=== PATIENT | male | born 1970 | race Two or more races ===

== ENCOUNTER 2025-03-04 08:29 | Inpatient (IN) | payer BC ==
[~2025-03-04] VITALS: Ht 177.8 cm; Wt 82.5 kg
[2025-03-04 08:35] VITALS: PULSE 83; RESP 12; O2SAT 95
--- NOTE | 2025-03-04 08:35 | ECG ---
[facility] Test Date: 2025-03-04 Test Time: 08:26:21 Pat Name: KARINE FOX Department: Room: [address] [place] [address] Gender: M Care Tech: GP : 1970 Requested By: DONOVAN BRO Order Number: [id number] Reading MD: Baldemar Rojo Measurements Intervals [place] Rate: 72 P: 29 VA: 173 QRS: -79 QRSD: 99 T: -7 QT: 396 QTc: 434 Interpretive Statements Sinus rhythm RSR' in V1 or V2, right VCD or RVH Probable left ventricular hypertrophy Probable inferior infarct, age indeterminate Lateral leads are also involved Electronically Signed On 03-04-2025 15:19:15 PDT by Baldemar Rojo Please click the below link to view image of tracing.
--- NOTE | 2025-03-04 08:56 | ED.PDOC ---
HPI (NEURO) HPI Comments 54 year old male presents to the ED with a chief complaint of slurred speech onset today (03/04/25) around 06:00. Patient states he woke up around 06:00, noticed slurred speech, Lt arm numbness. Patient states is currently experiencing dizziness as well. Upon ED arrival BG was 81, BP was 198/111 repeat BP was 203/219. Denies chest pain, shortness of breath, fever, chills, headache, blurred vision, fall, head injury, nausea, vomiting, diarrhea. No other symptoms or modifying factors present at this time. Chief Complaint: Stroke Time Seen by MD: 08:31 Reviewed Notes: Medications, Allergies Information Source: Patient Mode of Arrival: Ambulatory Severity: Moderate Timing: Hours Duration: Since onset Prehospital treatment: None Numbness Location: (L) Arm Onset: At rest Circumstances: Spontaneous Symptoms: Numbness History of: None Modifying factors: Nothing Associated Signs and Symptoms: Numbness Past Medical History PAST MEDICAL HISTORY: Denies Surgical History: Denies all surgeries Family History Family History: Reviewed,noncontributory to illness, No family hx of Cancer, No family hx of DM, No family hx of Heart nereida, No family hx of HTN, No family hx ofKidney nereida, No family hx of Liver nereida, No family hx of Lung nereida, No family hx of Stroke Social History Smoker: Non-Smoker Alcohol: Denies ETOH Use Drugs: Denies Drug Use Lives In: Home Constitutional: denies: chills, diaphoresis, fatigue, fever, malaise, sweats, weakness, others EENTM: denies: blurred vision, double vision, ear bleeding, ear discharge, ear drainage, ear pain, ear ringing, eye pain, eye redness, hearing loss, mouth pain, mouth swelling, nasal discharge, nose bleeding, nose congestion, nose pain, photophobia, tearing, throat pain, throat swelling, voice changes, others Respiratory: denies: cough, hemoptysis, orthopnea, SOB at rest, shortness of breath, SOB with excertion, stridor, wheezing, others Cardiovascular: denies: chest pain, dizzy spells, diaphoresis, Dyspnea on exertion, edema, irregular heart beat, left arm pain, lightheadedness, palpitations, PND, syncope, others Genitourinary: denies: burning, dysuria, flank pain, frequency, hematuria, incontinence, penile discharge, penile sore, pain, testicle pain, testicle swelling, urgency, others Neurological: reports: dizziness, numbness (Lt arm), others (slurred speech); denies: fainting, headache, left sided numbness, left sided weakness, paresthesia, pre-existing deficit, right sided numbness, right sided weakness, seizure, speech problems, tingling, tremors, weakness Musculoskeletal: denies: back pain, gout, joint pain, joint swelling, muscle pain, muscle stiffness, neck pain, others Integumetry: denies: bruises, change in color, change in hair/nails, dryness, laceration, lesions, lumps, rash, wounds, others Allergic/Immunocompromised: denies: Difficulty Healing, Frequent Infections, Hives, Itching, others Hematologic/Lymphatic: denies: anemia, blood clots, easy bleeding, easy bruising, swollen glands, others Endocrine: denies: excessive hunger, excessive sweating, excessive thirst, excessive urination, flushing, intolerance to cold, intolerance to heat, unexplained weight gain, unexplained weight loss, others Psychiatric: denies: anxiety, bipolar disorder, depression, hopeless, panic disorder, schizophrenia, sleepless, suicidal, others All Other Systems: Reviewed and Negative Physical Exam General Appearance: Moderate Distress HEENT: Normal ENT Inspection, Pharynx Normal, TMs Normal Neck: Full Range of Motion, Non-Tender, Normal, Normal Inspection Respiratory: Chest Non-Tender, Lungs Clear, No Accessory Muscle Use, No Respiratory Distress, Normal Breath Sounds Cardiovascular: No Edema, No JVD, No Murmur, No Gallop, Normal Peripheral Pulses, Regular Rate/Rhythm Breast Exam: Deferred Gastrointestinal: No Organomegaly, Non Tender, No Pulsatile Mass, Normal Bowel Sounds, Soft Genitalia: Deferred Pelvic: Deferred Rectal: Deferred Extremities: No calf tenderness, Normal capillary refill, Normal inspection, Normal range of motion, Non-tender, No pedal edema Musculoskeletal : Apperance: Normal Neurologic: Alert, chairman & chief executive officer II-XII nml as Tested, No Motor Deficits, Normal Affect, Normal Mood, No Sensory Deficits Cerebellar Function: Normal Reflexes: Normal Skin: Dry, Normal Color, Warm Peripheral Pulses: 3+ Radial (R), 3+ Radial (L) Lymphatic: No Adenopathy EKG EKG : Pulse Rate (adult): 72 Cardiac Rhythm: NSR Was a procedure done? Was a procedure done?: No Differential Diagnosis (SZ) Seizure: Psychogenic Seizure, Closed Head Injury, CVA/TIA X-Ray, Labs, Meds, VS Vital Signs Date Time Temp Pulse Resp B/P (MAP) Pulse Ox O2 Delivery O2 Flow Rate FiO2 03/04/25 09:02 68 171/119 03/04/25 08:56 72 03/04/25 08:53 70 03/04/25 08:35 83 12 95 Room Air* 0 21 03/04/25 08:35 98.3 83 12 232/128 (162) 95 98.3 03/04/25 08:33 72 03/04/25 08:23 99.5 64 18 198/111 97 99.5 203/129 Lab Test 03/04/25 09:30 03/04/25 08:45 03/04/25 08:35 Range/Units Troponin I High Sensitivity Pending 10 </=54 ng/L Urine Color Colorless Yellow Urine Clarity Clear Clear Urine pH 5.5 5.0-9.0 Urine Specific [place] 1.004 1.001-1.035 Urine Protein Negative Negative Urine Ketones Negative Negative Urine Blood Negative Negative /uL Urine Nitrite Negative Negative Urine Bilirubin Negative Negative Urine Urobilinogen Normal Negative mg/dL Urine Leukocyte Esterase Negative Negative /uL Urine RBC None seen 0 - 3 /hpf Urine Microscopic WBC < 1 0-3 /HPF Urine Squamous Epithelial Cells Few <5 /hpf Urine Bacteria None seen None Seen /hpf Urine Glucose Normal Normal mg/dL White Blood Count 10.5 4.4-10.8 10^3/uL Red Blood Count 5.45 4.5-5.90 10^6/uL Hemoglobin 16.3 13.5-17.5 g/dL Hematocrit 48.7 41.0-53.0 % Mean Corpuscular Volume 89.3 80.0-100.0 fL Mean Corpuscular Hemoglobin 30.0 28.0-32.0 pg Mean Corpuscular Hemoglobin Concent 33.6 32.0-36.0 g/dL Red Cell Distribution Width 14.6 H 11.8-14.3 % Platelet Count 231 140-450 10^3/uL Mean Platelet Volume 9.2 6.9-10.8 fL Neutrophils (%) (Auto) 64.9 37.0-80.0 % Lymphocytes (%) (Auto) 25.5 10.0-50.0 % Monocytes (%) (Auto) 7.5 0.0-12.0 % Eosinophils (%) (Auto) 1.7 0.0-7.0 % Basophils (%) (Auto) 0.4 0.0-2.0 % Neutrophils # (Auto) 6.8 1.6-8.6 10 ^3/uL Lymphocytes # (Auto) 2.7 0.4-5.4 10 ^3/uL Monocytes # (Auto) 0.8 0-1.3 10 ^3/uL Eosinophils # (Auto) 0.2 0-0.8 10 ^3/uL Basophils # (Auto) 0 0-0.2 10 ^3/uL Nucleated Red Blood Cells 0.0 % Sodium Level 143 136-145 mmol/L Potassium Level 4.8 3.5-5.1 mmol/L Chloride Level 110 H 98-107 mmol/L Carbon Dioxide Level 26 20-31 mmol/L Anion Gap 7 5-15 Blood Urea Nitrogen 12 9-23 mg/dL Creatinine 1.14 0.700-1.30 mg/dL Glomerular Filtration Rate Calc 76 >90 mL/min BUN/Creatinine Ratio 10.5 10.0-20.0 Serum Glucose 95 74-106 mg/dL Calcium Level 9.2 8.7-10.4 mg/dL Current Medications Medications (Trade) Dose Ordered Sig/Klaus Route Start Time Stop Time Status Last Admin Labetalol HCl (Labetalol HCl) 10 mg ONCE ONCE IV 03/04/25 09:00 03/04/25 09:01 DC 03/04/25 09:02 Patient alert. Blood pressure elevated. Ambulating. Answering questions. Was given labetalol. Has good muscle strength. Complaining of speech difficulty. Possible TIA. Possible lacunar infarct. WBC within normal limits. Hemoglobin within normal limits. EKG reviewed does not show any acute changes. Explained to the patient. Continue monitoring. [address] [address] Ph: [phone] DIAGNOSTIC IMAGING Diagnostic Imaging Report : [id number] Signed PATIENT: KARINE FOX ACCT: [id number] UNIT: [id number] : 1970 LOC: ER ROOM / BED: / AGE / SEX: 54 / M ADM STATUS: REG ER SERVICE 9 ORDERING PHYSICIAN: DONOVAN BRO MD PROCEDURE(s): CTH - STROKE CTH REASON: cva ORDER NUMBER(s): [id number], ACCESSION NUMBER(s): [id number] EXAM: CT STROKE CTH INDICATION: cva TECHNIQUE: CT of the head without intravenous contrast. Radiation Dose : 1. Head: CT Dose: CTDI volume is 58.84 mGy. Dose-length product is 1159.45 mGy*cm The dose indicators for CT are the volume Computed Tomography (CT) Dose Index (CTDIvol) and the Dose Length Product (DLP), and are measured in units of mGy and mGy-cm, respectively. These indicators are not patient dose, but values generated from the CT scanner acquisition factors. The report includes radiation exposure data for exposures received during this examination. COMPARISON: None FINDINGS: There is no evidence of acute intracranial hemorrhage, extra-axial collection, mass effect, midline shift, herniation or hydrocephalus. The ventricles, sulci and cisterns are age appropriate. The adam-white differentiation is intact. The visualized paranasal sinuses and mastoid air cells are clear. The surrounding soft tissues and osseous structures are unremarkable. IMPRESSION: No acute intracranial abnormality. Radiation optimization: All CT scans at this facility use at least one of these dose optimization techniques: automated exposure control mA and/or kV adjustment per patient size (includes targeted exams where dose is matched to clinical indication) or iterative reconstruction. ATED BY: CALVIN JOHNSON MD DICTATED DATE/TIME: 03/04/25919 SIGNED BY: CALVIN JOHNSON MD SIGNED DATE/TIME: 03/04/25919 CC: [place] [id number] Ph: [phone] DIAGNOSTIC IMAGING Diagnostic Imaging Report : [id number] Signed PATIENT: KARINE FOX ACCT: [id number] UNIT: [id number] : 1970 LOC: ER ROOM / BED: / AGE / SEX: 54 / M ADM STATUS: REG ER SERVICE ORDERING PHYSICIAN: DONOVAN BRO MD PROCEDURE(s): CXRP - CHEST PORTABLE REASON: sob ORDER NUMBER(s): [id number], ACCESSION NUMBER(s): [id number] CHEST RADIOGRAPH Indication: sob Technique: Single frontal view of the chest was obtained COMPARISON: None FINDINGS: Lines and Tubes: None Lungs: Clear Pleura: No effusion. No pneumothorax. Cardiomediastinal contours: Unremarkable Bones: Unremarkable IMPRESSION: No acute disease. ATED BY: CALVIN JOHNSON MD DICTATED DATE/TIME: 03/04/25916 SIGNED BY: CALVIN JOHNSON MD SIGNED DATE/TIME: 03/04/25916 CC: Time of 1ST Reevaluation: 09:01 Reevaluation 1ST: Unchanged Patient Education/Counseling: Diagnosis, Treatment, Prognosis Family Education/Counseling: No Family Present Departure 1 Departure Time of Disposition: 09:45 Impression: Primary Impression: Hypertensive emergency Additional Impression: TIA (transient ischemic attack) Disposition: ADMITTED INPATIENT Admit to: Med Surg Condition: Guarded Critical Care Note Critical Care Time?: Yes (90 min-critical care time only) Stability Stability form required: No Heart Score Heart Score: Heart Score Response (Comments) Value History Slightly Suspicious 0 EKG Normal 0 Age 45-64 1 Risk Factors >3 or Hx ASHD 2 Troponin Normal limit 0 Total 3 I personally scribed for DONOVAN BRO MD ([email or web address]) on 03/04/25 at 08:56. Electronically submitted by Roshni Wise ([email or web address]). I personally scribed for DONOVAN BRO MD ([email or web address]) on 03/04/25 at 09:49. Electronically submitted by Roshni Wise ([email or web address]). DONOVAN BRO MD Mar 04, 2025 08:56
[2025-03-04] MEDS: LABETALOL HCL 20 MG/4 ML VL IV ONE (09:02)
[2025-03-04 09:07] LABS: Hematocrit 48.7 % (41.0-53.0); Hemoglobin 16.3 g/dL (13.5-17.5); Mean Corpuscular Hemoglobin 30.0 pg (28.0-32.0); Mean Corpuscular Volume 89.3 fL (80.0-100.0); Nucleated Red Blood Cells % 0.0 %
[2025-03-04 09:19] LABS: Urine Protein, UAD Negative (Negative)
--- NOTE | 2025-03-04 09:19 | DVH ---
CHEST RADIOGRAPH Indication: sob Technique: Single frontal view of the chest was obtained COMPARISON: None FINDINGS: Lines and Tubes: None Lungs: Clear Pleura: No effusion. No pneumothorax. Cardiomediastinal contours: Unremarkable Bones: Unremarkable IMPRESSION: No acute disease.
--- NOTE | 2025-03-04 09:22 | DVH ---
EXAM: CT STROKE CTH INDICATION: cva TECHNIQUE: CT of the head without intravenous contrast. Radiation Dose : 1. Head: CT Dose: CTDI volume is 58.84 mGy. Dose-length product is 1159.45 mGy*cm The dose indicators for CT are the volume Computed Tomography (CT) Dose Index (CTDIvol) and the Dose Length Product (DLP), and are measured in units of mGy and mGy-cm, respectively. These indicators are not patient dose, but values generated from the CT scanner acquisition factors. The report includes radiation exposure data for exposures received during this examination. COMPARISON: None FINDINGS: There is no evidence of acute intracranial hemorrhage, extra-axial collection, mass effect, midline s hift, herniation or hydrocephalus. The ventricles, sulci and cisterns are age appropriate. The adam-white differentiation is intact. The visualized paranasal sinuses and mastoid air cells are clear. The surrounding soft tissues and osseous structures are unremarkable. IMPRESSION: No acute intracranial abnormality. Radiation optimization: All CT scans at this facility use at least one of these dose optimization alex hniques: automated exposure control mA and/or kV adjustment per patient size (includes targeted exam s where dose is matched to clinical indication) or iterative reconstruction.
[2025-03-04 09:37] LABS: Potassium 4.8 mmol/L (3.5-5.1); Sodium 143 mmol/L (136-145)
[2025-03-04 09:38] LABS: Anion Gap 7 (5-15); Carbon Dioxide 26 mmol/L (20-31)
[2025-03-04 09:39] LABS: Calcium 9.2 mg/dL (8.7-10.4)
[2025-03-04 09:41] LABS: Chloride 110 mmol/L (98-107)
[2025-03-04 09:44] LABS: BUN/Creatinine Ratio 10.5 (10.0-20.0); Blood Urea Nitrogen 12 mg/dL (9-23); Glucose 95 mg/dL (74-106)
[2025-03-04] MEDS ORDERED: HYDROcodone-ACET 5/325MG TAB PO PRN (14:00)
[2025-03-04] MEDS ORDERED: NITROGLYCERIN 0.4 MG SL TAB SL PRN (14:00)
[2025-03-04] MEDS ORDERED: MORPHINE SULFATE INJ 2 MG/ml SYRG IV PRN (14:00)
[2025-03-04] MEDS ORDERED: ONDANSETRON HCL 4 MG/2 ML VIAL IV PRN (14:00)
[2025-03-04] MEDS ORDERED: DOCUSATE SOD 100 MG CAP PO PRN (14:00)
[2025-03-04] MEDS ORDERED: ACETAMINOPHEN 325 MG TAB PO PRN (14:00)
[2025-03-04] MEDS ORDERED: AMLO1TAB23 PO (14:02)
[2025-03-04] MEDS ORDERED: ENOXAPARIN SOD 80 MG/0.8ML SYRINGE SC ONE (14:30)
--- NOTE | 2025-03-04 14:32 | DVHHP2 ---
History of Present Illness Reason for Visit: Left sided weakness History of Present Illness Oren Chavez is a 54-year-old male with past medical history of hypertension, who has not been taking any medications for a few months, who came to the hospital due to left sided weakness. Patient states he woke up at 0600 this morning with left arm weakness, left facial droop, and slurred speech. His symptoms starting improving while he was at home so he started to get ready for work. He then started to become dizzy and his was able to convince him to come to the hospital. Cardiovascular: HTN Smoke: No ALCOHOL: heavy (2 beers/day) Drugs: None Lives: with Family Domestic Violence: Neg Review of Systems Constitutional: No: Fever, Chills, Sweats, Weakness, Malaise, Other Eyes: No: Pain, Vision change, Conjunctivae inflammation, Eyelid inflammation, Other, Redness ENT: No: Ear pain, Ear discharge, Nose pain, Nose discharge, Nose congestion, Mouth pain, Mouth swelling, Throat pain, Throat swelling, Other Respiratory: No: Cough, Dry, Shortness of breath, SOB with excertion, Wheezing, Hemoptysis, Pleuritic Pain, Sputum, Wheezing, Other Cardiovascular: No: Chest Pain, Palpitations, Orthopnea, Paroxysmal Noc. Dyspne a, Edema, Lt Headedness, Other Gastrointestinal: No: Nausea, Vomiting, Abdominal Pain, Diarrhea, Constipation, Melena, Hematochezia, Other Genitourinary: No Dysuria, No Frequency, No Incontinence, No Hematuria, No Retention, No Other Musculoskeletal: No: other, neck pain, shoulder pain, arm pain, back pain, hand pain, leg pain, foot pain Skin: No: Rash, Lesions, Jaundice, Bruising, Other Neurological: Weakness (left arm ), Numbness (left arm, left face), Other (Dizzy, left facial droop, drooling); No: Incoordination, Change in speech, Confusion, Seizures Allergies: Coded Allergies: NO KNOWN ALLERGIES (Unverified , 03/04/25) Medications Current Medications Medications Dose Ordered Sig/Klaus Route Start Time Stop Time Status Last Admin Dose Admin Acetaminophen/ Hydrocodone Bitart 1 tab Q4HP PRN PO 03/04/25 14:00 UNV Ondansetron HCl 4 mg Q4HP PRN IV 03/04/25 14:00 UNV Docusate Sodium 100 mg BIDPRN PRN PO 03/04/25 14:00 UNV Acetaminophen 650 mg Q6HP PRN PO 03/04/25 14:00 UNV Nitroglycerin 0.4 mg Q5MINP PRN SL 03/04/25 14:00 UNV Morphine Sulfate 2 mg Q30M PRN IV 03/04/25 14:00 UNV Patient Own Medication 2 tab DAILY PO 03/05/25 10:00 UNV Hydralazine HCl 10 mg Q6HP PRN IV 03/04/25 14:15 UNV Clonidine HCl 0.2 mg Q6HP PRN PO 03/04/25 14:15 UNV Exam Vital Signs Vital Signs Date Time Temp Pulse Resp B/P (MAP) Pulse Ox O2 Delivery O2 Flow Rate FiO2 03/04/25 12:30 65 18 138/85 (102) 94 03/04/25 08:35 Room Air* 0 21 03/04/25 08:35 98.3 98.3 General Appearance: Alert, Oriented X3, Cooperative, mild distress HEENT: Atraumatic, PERRLA, Mucous membr. moist/pink Respiratory: Clear to auscultation, Normal air movement Cardiovascular: Regular rate, Normal S1, Normal S2, No murmurs Abdominal: Normal bowel sounds, Soft, No tenderness, No hepatospenomegaly Extremities: No clubbing, No cyanosis, No edema, Normal pulses, No tenderness/swelling Skin: No rashes, No breakdown, No significant lesion Neuro: Normal gait, Normal speech, Strength at 5/5 X4 ext, Normal tone, Other (states all symptoms have resolved) Psych/Mental Status: Mental status NL, Mood NL Labs/Xrays Labs Test 03/04/25 11:43 03/04/25 08:45 03/04/25 08:35 Range/Units Troponin I High Sensitivity 9 </=54 ng/L Urine Color Colorless Yellow Urine Clarity Clear Clear Urine pH 5.5 5.0-9.0 Urine Specific [place] 1.004 1.001-1.035 Urine Protein Negative Negative Urine Ketones Negative Negative Urine Blood Negative Negative /uL Urine Nitrite Negative Negative Urine Bilirubin Negative Negative Urine Urobilinogen Normal Negative mg/dL Urine Leukocyte Esterase Negative Negative /uL Urine RBC None seen 0 - 3 /hpf Urine Microscopic WBC < 1 0-3 /HPF Urine Squamous Epithelial Cells Few <5 /hpf Urine Bacteria None seen None Seen /hpf Urine Glucose Normal Normal mg/dL White Blood Count 10.5 4.4-10.8 10^3/uL Red Blood Count 5.45 4.5-5.90 10^6/uL Hemoglobin 16.3 13.5-17.5 g/dL Hematocrit 48.7 41.0-53.0 % Mean Corpuscular Volume 89.3 80.0-100.0 fL Mean Corpuscular Hemoglobin 30.0 28.0-32.0 pg Mean Corpuscular Hemoglobin Concent 33.6 32.0-36.0 g/dL Red Cell Distribution Width 14.6 H 11.8-14.3 % Platelet Count 231 140-450 10^3/uL Mean Platelet Volume 9.2 6.9-10.8 fL Neutrophils (%) (Auto) 64.9 37.0-80.0 % Lymphocytes (%) (Auto) 25.5 10.0-50.0 % Monocytes (%) (Auto) 7.5 0.0-12.0 % Eosinophils (%) (Auto) 1.7 0.0-7.0 % Basophils (%) (Auto) 0.4 0.0-2.0 % Neutrophils # (Auto) 6.8 1.6-8.6 10 ^3/uL Lymphocytes # (Auto) 2.7 0.4-5.4 10 ^3/uL Monocytes # (Auto) 0.8 0-1.3 10 ^3/uL Eosinophils # (Auto) 0.2 0-0.8 10 ^3/uL Basophils # (Auto) 0 0-0.2 10 ^3/uL Nucleated Red Blood Cells 0.0 % Sodium Level 143 136-145 mmol/L Potassium Level 4.8 3.5-5.1 mmol/L Chloride Level 110 H 98-107 mmol/L Carbon Dioxide Level 26 20-31 mmol/L Anion Gap 7 5-15 Blood Urea Nitrogen 12 9-23 mg/dL Creatinine 1.14 0.700-1.30 mg/dL Glomerular Filtration Rate Calc 76 >90 mL/min BUN/Creatinine Ratio 10.5 10.0-20.0 Serum Glucose 95 74-106 mg/dL Calcium Level 9.2 8.7-10.4 mg/dL CHEST RADIOGRAPH FINDINGS: Lines and Tubes: None Lungs: Clear Pleura: No effusion. No pneumothorax. Cardiomediastinal contours: Unremarkable Bones: Unremarkable IMPRESSION: No acute disease. EXAM: CT STROKE CTH FINDINGS: There is no evidence of acute intracranial hemorrhage, extra-axial collection, mass effect, midline shift, herniation or hydrocephalus. The ventricles, sulci and cisterns are age appropriate. The adam-white differentiation is intact. The visualized paranasal sinuses and mastoid air cells are clear. The surrounding soft tissues and osseous structures are unremarkable. IMPRESSION: No acute intracranial abnormality. SEPSIS Sepsis Screen Date sepsis recognized/suspect: Mar 04, 2025 Time Sepsis recognized/suspect: 834 Recent Procedure: No On Antibiotic Therapy: No Respiratory Rate >20: No Heart Rate >90: No Temp<36 C (96.8 F) or >38.3 C: No SBP <90 or MAP <65 mmHG: No New Acute Mental Status Change: No Is the patient on CPAP, BIPAP,: No Physician Orders Ct Head Cva (03/04/25 08:50) Chest Portable (03/04/25 08:50) Admit (03/04/25 13:52) Code Status (03/04/25 13:52) 2 Gm Sodium Diet (03/04/25 Dinner) Hydrocodone-Acet 5/325mg Tab (Prim 5/32 (03/04/25 14:00) Ondansetron Hcl (Zofran) (03/04/25 14:00) Docusate Sodium Capsule (Colace Capsule) (03/04/25 14:00) Complete Blood Count (03/05/25 04:00) Comprehensive Metabolic Panel (03/05/25 04:00) Echo 2d Mode Cardiac Dop (03/04/25 13:52) Condition: Serious (03/04/25 13:52) Acetaminophen Tablet (Tylenol Tablet) (03/04/25 14:00) Nitroglycerin Sublingual (Ntrostat Subli (03/04/25 14:00) Morphine Sulfate Injection (03/04/25 14:00) Stat Ekg For Chest Pain (03/04/25 13:52) Notify Md Of Changes From Base (03/04/25 13:52) Ict Analyst For 24 Hours (03/04/25 13:52) Emergency Dysrhythmia Protocol (03/04/25 13:52) Rhythm Strips Once Every Shift (03/04/25 13:52) Oxygen By Nasal Cannula (03/04/25 13:52) Carotid Duplx W Color Dop (03/04/25 13:52) * Neurology Consult (03/04/25 13:52) (Nf) Amlodipine Besylate (03/05/25 10:00) Amlodipine Tablet (Norvasc Tablet) (03/04/25 14:15) Hydralazine Injection (Apresoline Inject (03/04/25 14:15) Clonidine Hcl Tablet (Catapres Tablet) (03/04/25 14:15) Aspirin Tablet (03/05/25 10:00) Vital Signs Date Time Temp Pulse Resp B/P (MAP) Pulse Ox O2 Delivery O2 Flow Rate FiO2 03/04/25 12:30 65 18 138/85 (102) 94 03/04/25 11:33 63 12 143/98 (113) 95 03/04/25 11:10 153/86 03/04/25 10:13 159/108 03/04/25 10:03 70 159/108 03/04/25 10:00 63 18 159/108 (125) 95 03/04/25 09:02 68 171/119 03/04/25 08:56 72 03/04/25 08:53 70 03/04/25 08:35 83 12 95 Room Air* 0 21 03/04/25 08:35 98.3 83 12 232/128 (162) 95 98.3 03/04/25 08:33 72 03/04/25 08:23 99.5 64 18 198/111 97 99.5 203/129 Laboratory Tests Test 03/04/25 08:35 White Blood Count 10.5 10^3/uL (4.4-10.8) Medications Medications Dose Ordered Sig/Klaus Route Start Time Stop Time Status Last Admin Dose Admin Aspirin 325 mg ONCE ONCE PO 03/04/25 10:00 03/04/25 10:01 DC 03/04/25 09:55 325 MG Clonidine HCl 0.2 mg ONCE ONCE PO 03/04/25 10:15 03/04/25 10:16 DC 03/04/25 10:13 0.2 MG Labetalol HCl 10 mg ONCE ONCE IV 03/04/25 09:00 03/04/25 09:01 DC 03/04/25 09:02 10 MG Assessment/Plan Assessment/Plan Assessment: Hypertensive emergency, Possible Stroke, Possible TIA, Uncontrolled hypertension, Plan: Admit to Tele, Neurology consult, ECHO, Carotid duplex, Start ASA, PRN antihypertensives, Home medications reconciled, Plan discussed with: Patient My Orders Orders - CHRIST RAJPUT P[employer]UTTER Procedure Category Date Status Time Admit ADMIT 03/04/25 Transmitted 13:52 Code Status CODE 03/04/25 Transmitted 13:52 2 Gm Sodium Diet DIET 03/04/25 Transmitted Dinner Hydrocodone-Acet PHA 03/04/25 Logged 5/325mg Tab (Prim 14:00 Ondansetron Hcl PHA 03/04/25 Logged (Zofran) 14:00 Docusate Sodium PHA 03/04/25 Logged Capsule (Colace 14:00 Complete Blood Count LAB 03/05/25 Verified 04:00 Comprehensive LAB 03/05/25 Verified Metabolic Panel 04:00 Echo 2d Mode Cardiac US 03/04/25 Logged DOP 13:52 Condition: Serious GABE 03/04/25 In Process 13:52 Acetaminophen Tablet PHA 03/04/25 Logged (Tylenol Tablet) 14:00 Nitroglycerin PHA 03/04/25 Logged Sublingual (Ntrostat 14:00 Morphine Sulfate PHA 03/04/25 Logged Injection 14:00 Stat Ekg For Chest GABE 03/04/25 In Process Pain 13:52 Notify Of Changes [facility] 03/04/25 In Process From Base 13:52 Ict Analyst For [facility] 03/04/25 In Process 24 Hours 13:52 Emergency Dysrhythmia [facility] 03/04/25 In Process Protocol 13:52 Rhythm Strips Once [facility] 03/04/25 In Process Every Shift 13:52 Oxygen By Nasal RT 03/04/25 Transmitted Cannula 13:52 Carotid Duplx W Color US 03/04/25 Logged DOP 13:52 * Neurology Consult CONS 03/04/25 Transmitted 13:52 (Nf) Amlodipine PHA 03/05/25 Logged Besylate 10:00 Amlodipine Tablet PHA 03/04/25 Logged (Norvasc Tablet) 14:15 Hydralazine Injection PHA 03/04/25 Logged (Apresoline Inject 14:15 Clonidine Hcl Tablet PHA 03/04/25 Logged (Catapres Tablet) 14:15 Aspirin Tablet PHA 03/05/25 Verified 10:00 Date of Service: Mar 04, 2025 Billing Provider: CHRIST RAJPUT Common Visit Codes: [id number] INP/OBS CARE (HIGH) CHRIST RAJPUT Mar 04, 2025 14:32
--- NOTE | 2025-03-04 14:37 | DVH ---
Carotid Duplex Date: 03/04/2025 02:10 PM Clinical History: stroke/TIA Comparison: None Technique: Duplex Doppler evaluation of the extracranial carotid and vertebral arteries including col or Doppler and spectral/pulsed waveform analysis was performed. Findings: Velocities and ratios within normal limit IMPRESSION: No hemodynamically significant stenosis noted in the right carotid system. No hemodynamically significant stenosis noted in the left carotid system. Reference: Radiology 2003; 229:[id number]
[2025-03-04 15:41] VITALS: BP 156/100; PULSE 60; RESP 17; TEMP 97.8; O2SAT 97
[2025-03-04 17:00] VITALS: BP 165/105; PULSE 57; RESP 18; TEMP 98.8; O2SAT 100
[2025-03-04] MEDS: hydrALAZINE HCL 20 MG/ML VL IV PRN (17:32)
[2025-03-04 20:00] VITALS: PULSE 67
[2025-03-04 21:00] VITALS: BP 127/92; PULSE 66; RESP 18; TEMP 97.5; O2SAT 97
[2025-03-05] VITALS (9 sets, daily range): BP systolic 128–158; BP diastolic 91–111; PULSE 55–81; RESP 15–19; TEMP 97.7–98.3; O2SAT 96–99
[2025-03-05 05:53] LABS: Hematocrit 45.0 % (41.0-53.0); Hemoglobin 15.6 g/dL (13.5-17.5); Mean Corpuscular Hemoglobin 30.3 pg (28.0-32.0); Mean Corpuscular Volume 87.2 fL (80.0-100.0); Nucleated Red Blood Cells % 0.0 %
[2025-03-05 06:13] LABS: Alanine Aminotransferase 14 U/L (7-40); Alkaline Phosphatase 77 U/L (46-116); Anion Gap 9 (5-15); BUN/Creatinine Ratio 10.1 (10.0-20.0); Blood Urea Nitrogen 11 mg/dL (9-23); Calcium 9.1 mg/dL (8.7-10.4); Carbon Dioxide 24 mmol/L (20-31); Glucose 97 mg/dL (74-106); Potassium 3.8 mmol/L (3.5-5.1); Sodium 142 mmol/L (136-145); Total Protein 7.1 g/dL (5.7-8.2)
[2025-03-05 06:14] LABS: Albumin 4.2 g/dL (3.2-4.8); Chloride 109 mmol/L (98-107)
[2025-03-05 06:15] LABS: Bilirubin, Total 0.7 mg/dL (0.2-1.0)
[2025-03-05 12:19] LABS: Triglycerides 129 mg/dL (< 150)
[2025-03-05 12:21] LABS: Cholesterol 183 mg/dL (< 200)
[2025-03-05 12:25] LABS: HDL Cholesterol 38 mg/dL (40-59)
--- NOTE | 2025-03-05 12:33 | DVHSR ---
APPROVED REPORT EXAM: Two-dimensional and M-mode echocardiogram with Doppler and color Doppler. Blood Pressure: 211/204 mmHg INDICATION CVA/TIA: stroke RISK FACTORS Hypertension: Height: 5'10, Weight: 182 DIMENSIONS LVDd4.3 (3.8-5.7cm)LA (2D)4.2 (1.9-4.0cm)Aortic Root4.2 (2.0-3.7cm) LVDs3.1 (2.5-4.0cm)LA (MM) (1.9-4.0cm)Aortic Cusp Exc2.3 (1.5-2.0cm) EF (%) 55.0 (55-70%)Rt. Atrium (1.9-4.0cm)Asc. Aorta4.1 cm IVSd1.3 (0.7-1.1cm)RV (D)3.8 (1.8-2.4cm) PWd1.5 (0.7-1.1cm) Mitral Valve MitralMitral Stenosis E wave0.50m/sMV Mean GR.mmHg A wave0.95m/sMV Peak GR.96mmHg E/A ratio0.52D MVAcm2 DECEL [id number] 1/2 Timems Aortic Valve Aortic ValveAortic Stenosis V11.29m/Carmen Mean GR.7mmHg V21.65m/Carmen Peak GR.11mmHg LVOT Diameter2.3 (1.8-2.4cm)Doppler AVA3.25cm2 AI P 1/2 Wrel6285.30ms Pulmonic Valve V21.00m/s Tricuspid Valve TR Velocity2.15m/s [id number] Conclusion lvef 55% moderate to severe LVH mild aortic regurg
--- NOTE | 2025-03-05 13:44 | DVHPN2 ---
Assessment/Plan Assessment/Plan progress note 54 M with HTN admitted for TIA. ct negative, came in with facial droop and L weakness now back to baseline. physical exam aox4 no facial droop PERRLA tongue midline CN 2-12 wnl clear breath sounds s1 s2 murmur abdomen soft no LE edema b/l strength and sensation equal UE LE labs ekg imaging reviewed assessment and plan HTN emergency? TIA AR? aortic root dilation? CTA head neck asa Plavix statin amlodipine, losartan echo w bubble telemetry will manage bp with scheduled PO meds only lipid, A1c diet reg dvt ppx on lovenox full code Plan discussed with: Patient My Orders Orders - GUNJAN JACOBO MD Procedure Category Date Status Time Losartan Tablet PHA 03/06/25 In Process (Cozaar Tablet) 10:00 Date of Service: Mar 05, 2025 Billing Provider: GUNJAN JACOBO MD Common Visit Codes: [id number] INP/OBS CARE(HIGH) GUNJAN JACOBO MD Mar 05, 2025 13:44
[2025-03-05] MEDS: IOHEXOL 350 MG/ML 100ML IJ ONE (14:58)
[2025-03-05] MEDS: LOSARTAN POTASSIUM 25 MG TAB PO ONE (15:37)
[2025-03-05] MEDS: CLOPIDOGREL BISULFATE 75 MG TAB PO ONE (16:20)
--- NOTE | 2025-03-05 17:41 | DVH ---
CLINICAL HISTORY: TIA TECHNIQUE: CT angiogram of the head and neck was performed without and with intravenous contrast. 3D MIP reconstructed images were created and archived on the PACS system. This exam was performed accord ing to our departmental dose optimization program. Up-to-date CT equipment and radiation dose reducti on techniques are utilized as appropriate. CTDI 22.4 DLP 919 COMPARISON: US CAROTID DUPLX W COLOR DOP on DOS: 03/04/25, CT STROKE CTH on DOS: 03/04/25 FINDINGS: CTA NECK: The common carotid, internal carotid, and vertebral arteries are patent with no evidence for high gra de narrowing, occlusion, and dissection. There are mild right and moderate left atherosclerotic changes of the carotid bulbs with prominent so ft tissue plaque on the left. There is no significant narrowing at the carotid bulbs per NASCET crite jessica. CTA HEAD: The anterior and posterior intracranial circulations are intact with no evidence for high grade narro wing, occlusion, or aneurysm. IMPRESSION: No acute CTA abnormality of the major head and neck arterial vasculature. Moderate mixed density plaque of the left carotid bulb. No significant stenosis.
--- NOTE | 2025-03-05 21:09 | DVHINCON2 ---
Date of service: Mar 05, 2025 Referring Physician Christelle Reason for Consultation Stroke/TIA History of Present Illness Mr. Chavez is a 54 years old right-handed gentleman with a history of hypertension, he came to the [facility] on 03/04/2025 with a chief complaint of slurry speech. At this time, he is alert and fully oriented, he provided the following history On waking up in the morning on 03/04/25, he could not speak all the voice come off slurred, he had mild tingling in the left hand, otherwise he denies focal weakness or other problems, his problems have resolved on 03/05/2025, he has never had similar problem before, he denies a history of stroke He has a history of hypertension, on arrival, his blood pressure is extremely high, 198/111, and increased to 232/128 in the ER He snores loud part is only when he is supine, not when he is sleeping on the side, his sleep is refreshing, he denies excessive daytime sleepiness or fatigue CBC, 03/05/2025: Unremarkable CMP, 03/05/2025: Unremarkable HGB A1c, 03/05/2025: 5.4 TG/Chol/LDL/HDL, 03/05/2025: 129/183/139/38 Echocardiogram, 03/05/2025: vef 55% moderate to severe LVH mild aortic regurg CT head, 03/04/2025: No acute intracranial abnormality CTA head, neck, 03/05/2025: No acute CTA abnormality of the major head and neck arterial vasculature. Moderate mixed density plaque of the left carotid bulb. No significant stenosis Past Medical History Hypertension Past Surgical History Right leg fracture repair Family History Hypertension, heart disease, stroke Social History He was a tobacco smoker, he denies a history of drug or alcohol abuse Allergies: Coded Allergies: NO KNOWN ALLERGIES (Unverified , 03/04/25) Home Meds Reported Medications Amlodipine Besylate (Amlodipine Besylate) 10 Mg Tab, 2 TAB PO DAILY, #30 TAB 5 Refills 03/04/25 Current Medications Current Medications Medications (Trade) Dose Ordered Sig/Klaus Route PRN Reason Start Time Stop Time Status Last Admin Amlodipine Besylate (Norvasc Tablet) 10 mg DAILY PO 03/05/25 10:00 03/05/25 09:34 Aspirin 81 mg DAILY PO 03/05/25 10:00 03/05/25 09:34 Losartan Potassium (Cozaar Tablet) 25 mg DAILY PO 03/06/25 10:00 Clopidogrel Bisulfate (Plavix) 75 mg DAILY PO 03/06/25 10:00 Atorvastatin Calcium (Lipitor) 80 mg HS PO 03/05/25 22:00 Review of Systems As above, the other systems are negative Vital Signs Vital Signs Date Time Temp Pulse Resp B/P (MAP) Pulse Ox O2 Delivery O2 Flow Rate FiO2 03/05/25 17:00 98.0 59 19 147/105 (119) 97 98.0 03/05/25 10:27 Room Air* 0 21 Physical Exam GENERAL EXAM: General: the patient is well developed and nourished. No acute distress. HEENT: Normocephalic, neck is supple, no carotid bruits. No mass. RESPIRATORY: Normal respiratory effort with symmetrical lung expansion. Lungs clear to auscultation. CARDIOVASCULAR: Regular rate and rhythm with no murmurs. S1, S2. ABDOMEN: Soft, nontender, normal bowel sound NEUROLOGICAL: MENTAL STATUS: Awake and alert. Oriented to person, place, time and general circumstances. Able to give personal history. SPEECH, LANGUAGE, HIGHER CORTICAL FUNCTION: no aphasia or dysathria. CRANIAL NERVES: #2: Intact visual kraus to confrontation. The optic discs were sharp. #3,4,6: Pupils are equal, round and reactive. EOMs full and conjugate. No nystagmus. #5: Facial sensation intact in all three divisions bilaterally. Mandibular strength intact. #7: Facial muscles symmetrical and strength intact. #8: Hearing grossly normal to voice. #9,10: Uvula and soft palate rise in the midline. Swallow and voice are normal. #11: Trapezius and sternomastoid strength intact bilaterally. #12: Tongue midline. No fasciculations or atrophy. SENSATION: Sensation to touch and pinprick is normal. MOTOR: Normal tone in the upper and lower extremity. Normal muscle bulk. No fasciculations. No abnormal movements or posturing. Muscle strength of the major groups in the upper extremities is 5/5. Muscle strength of the major groups in the lower extremities is 5/5. REFLEXES: Deep tendon reflexes are symmetrical. No pathological reflexes. CEREBELLAR/COORDINATION: Finger to nose and heel to weber are normal bilaterally. GAIT/STATION: deferred. Labs/Diagnostic Data Labs Test 03/05/25 04:51 03/04/25 11:43 03/04/25 08:45 Range/Units White Blood Count 10.3 4.4-10.8 10^3/uL Red Blood Count 5.16 4.5-5.90 10^6/uL Hemoglobin 15.6 13.5-17.5 g/dL Hematocrit 45.0 41.0-53.0 % Mean Corpuscular Volume 87.2 80.0-100.0 fL Mean Corpuscular Hemoglobin 30.3 28.0-32.0 pg Mean Corpuscular Hemoglobin Concent 34.7 32.0-36.0 g/dL Red Cell Distribution Width 14.5 H 11.8-14.3 % Platelet Count 197 140-450 10^3/uL Mean Platelet Volume 9.3 6.9-10.8 fL Neutrophils (%) (Auto) 66.2 37.0-80.0 % Lymphocytes (%) (Auto) 23.9 10.0-50.0 % Monocytes (%) (Auto) 7.4 0.0-12.0 % Eosinophils (%) (Auto) 2.2 0.0-7.0 % Basophils (%) (Auto) 0.3 0.0-2.0 % Neutrophils # (Auto) 6.8 1.6-8.6 10 ^3/uL Lymphocytes # (Auto) 2.5 0.4-5.4 10 ^3/uL Monocytes # (Auto) 0.8 0-1.3 10 ^3/uL Eosinophils # (Auto) 0.2 0-0.8 10 ^3/uL Basophils # (Auto) 0 0-0.2 10 ^3/uL Nucleated Red Blood Cells 0.0 % Sodium Level 142 136-145 mmol/L Potassium Level 3.8 3.5-5.1 mmol/L Chloride Level 109 H 98-107 mmol/L Carbon Dioxide Level 24 20-31 mmol/L Anion Gap 9 5-15 Blood Urea Nitrogen 11 9-23 mg/dL Creatinine 1.09 0.700-1.30 mg/dL Glomerular Filtration Rate Calc 80 >90 mL/min BUN/Creatinine Ratio 10.1 10.0-20.0 Serum Glucose 97 74-106 mg/dL Hemoglobin A1c 5.4 <5.7 % A1C Calcium Level 9.1 8.7-10.4 mg/dL Total Bilirubin 0.7 0.2-1.0 mg/dL Aspartate Amino Transferase (AST) 16 13-40 U/L Alanine Aminotransferase (ALT) 14 7-40 U/L Alkaline Phosphatase 77 46-116 U/L Total Protein 7.1 5.7-8.2 g/dL Albumin 4.2 3.2-4.8 g/dL Triglycerides Level 129 < 150 mg/dL Cholesterol Level 183 < 200 mg/dL LDL Cholesterol 139 H < 100 mg/dL HDL Cholesterol 38 L 40-59 mg/dL Troponin I High Sensitivity 9 </=54 ng/L Urine Color Colorless Yellow Urine Clarity Clear Clear Urine pH 5.5 5.0-9.0 Urine Specific [place] 1.004 1.001-1.035 Urine Protein Negative Negative Urine Ketones Negative Negative Urine Blood Negative Negative /uL Urine Nitrite Negative Negative Urine Bilirubin Negative Negative Urine Urobilinogen Normal Negative mg/dL Urine Leukocyte Esterase Negative Negative /uL Urine RBC None seen 0 - 3 /hpf Urine Microscopic WBC < 1 0-3 /HPF Urine Squamous Epithelial Cells Few <5 /hpf Urine Bacteria None seen None Seen /hpf Urine Glucose Normal Normal mg/dL Assessment Acute slurred speech, left hand numbness, to rule out acute stroke Hypertension emergency Hypertension Sleep-related breathing disorder Plan/Recommendation Monitoring Supportive treatment Telemetry MR brain scan Aspirin 81 mg daily Lipitor 80 mg daily Plavix 75 mg daily for 21 days Blood pressure control Patient to confirm he sleeps symptoms with his Common stroke risk factors discussed with him More recommendation per clinical course Progress: Poor This medical document was created using an electronic medical record system with [employer] dictation system. Although this document has been carefully reviewed, there may still be some phonetic and typographical errors. These areas are purely typographical due to imperfections of the software programs, and do not reflect any compromise in the patient's medical care. Plan discussed with: Patient, Other JUAN GALARZA MD Mar 05, 2025 21:09
[2025-03-05] MEDS ORDERED: LORazepam 2MG/ML-1ML VIAL IV PRN (21:30)
[2025-03-05] MEDS: ATORVASTATIN 20 MG TAB PO SCH (22:03)
[2025-03-06 05:00] VITALS: BP 158/107; PULSE 72; RESP 16; TEMP 97.7; O2SAT 98
[2025-03-06 07:07] LABS: Anion Gap 8 (5-15); Calcium 9.5 mg/dL (8.7-10.4); Carbon Dioxide 25 mmol/L (20-31); Chloride 107 mmol/L (98-107); Potassium 4.5 mmol/L (3.5-5.1); Sodium 140 mmol/L (136-145)
[2025-03-06 07:13] LABS: BUN/Creatinine Ratio 6.7 (10.0-20.0); Glucose 82 mg/dL (74-106)
[2025-03-06 07:15] LABS: Blood Urea Nitrogen 8 mg/dL (9-23); Hematocrit 48.9 % (41.0-53.0); Hemoglobin 16.9 g/dL (13.5-17.5); Mean Corpuscular Hemoglobin 30.3 pg (28.0-32.0); Mean Corpuscular Volume 87.8 fL (80.0-100.0); Nucleated Red Blood Cells % 0.1 %
[2025-03-06 07:30] VITALS: PULSE 74
--- NOTE | 2025-03-06 08:55 | DVHPN2 ---
Progress Note - Dictate Date Seen: Mar 06, 2025 Medical Necessity Reason Pt with a Central, PICC or Fol: No Subjective Mr. Chavez is a 54 years old right-handed gentleman with a history of hypertension, he came to the [facility] on 03/04/2025 with a chief complaint of slurry speech. At this time, he is alert and fully oriented, he provided the following history On waking up in the morning on 03/04/25, he could not speak or the voice came out slurred, he also had mild tingling in the left hand, otherwise he denies focal weakness or other problems, his problems resolved after he arrived the emergency room CBC, 03/05/2025: Unremarkable CMP, 03/05/2025: Unremarkable HGB A1c, 03/05/2025: 5.4 TG/Chol/LDL/HDL, 03/05/2025: 129/183/139/38 Echocardiogram, 03/05/2025: vef 55% moderate to severe LVH mild aortic regurg CT head, 03/04/2025: No acute intracranial abnormality CTA head, neck, 03/05/2025: No acute CTA abnormality of the major head and neck arterial vasculature. Moderate mixed density plaque of the left carotid bulb. No significant stenosis MRI head, 03/06/2025: No acute infarct, intracranial hemorrhage, mass effect, or hydrocephalus vital signs Vital Sign Date Time Temp Pulse Resp B/P (MAP) Pulse Ox O2 Delivery O2 Flow Rate FiO2 03/06/25 05:00 97.7 72 16 158/107 (124) 98 97.7 03/05/25 20:00 Room Air* 0 21 Total Intake and Output 03/05/25 03/05/25 03/06/25 15:00 23:00 07:00 Intake Total 450 ml 650 ml Balance 450 ml 650 ml medications Current Medications Medications Dose Ordered Sig/Klaus Route Start Time Stop Time Status Last Admin Dose Admin Acetaminophen/ Hydrocodone Bitart 1 tab Q4HP PRN PO 03/04/25 14:00 Acetaminophen 650 mg Q6HP PRN PO 03/04/25 14:00 Amlodipine Besylate 10 mg DAILY PO 03/05/25 10:00 03/05/25 09:34 10 MG Aspirin 81 mg DAILY PO 03/05/25 10:00 03/05/25 09:34 81 MG Losartan Potassium 25 mg DAILY PO 03/06/25 10:00 Clopidogrel Bisulfate 75 mg DAILY PO 03/06/25 10:00 Atorvastatin Calcium 80 mg HS PO 03/05/25 22:00 03/05/25 22:03 80 MG Lorazepam 1 mg ONCE PRN IV 03/05/25 21:30 objective General: the patient is well developed and nourished. No acute distress. MENTAL STATUS: Subjective SPEECH, LANGUAGE, HIGHER CORTICAL FUNCTION: no aphasia or dysathria. CRANIAL NERVES: Pupils are equal, round and reactive. EOMs full and conjugate. No nystagmus. Facial sensation intact in all three divisions bilaterally. Mandibular strength intact. Facial muscles symmetrical and strength intact. Tongue midline. No fasciculations or atrophy. SENSATION: Sensation to touch and pinprick is normal. MOTOR: Normal tone in the upper and lower extremity. Normal muscle bulk. No fasciculations. No abnormal movements or posturing. Muscle strength of the major groups in the extremities is 5/5. REFLEXES: Deep tendon reflexes are symmetrical. No pathological reflexes. CEREBELLAR/COORDINATION: Finger to nose and heel to weber are normal bilaterally. GAIT/STATION: deferred. laboratory and microbiology Laboratory Tests 03/06/25 04:35 Test 03/06/25 04:35 Range/Units Serum Glucose 82 74-106 mg/dL Problem List Acute slurred speech, left hand numbness, likely TIA Hypertension emergency Hypertension Sleep-related breathing disorder Assessment/Plan Monitoring Supportive treatment Telemetry EEG Aspirin 81 mg daily Lipitor 80 mg daily Plavix 75 mg daily for 21 days Blood pressure control Further address sleep-related breathing disorder as outpatient Common stroke risk factors discussed with him More recommendation per clinical course This medical document was created using an electronic medical record system with [facility] dictation system. Although this document has been carefully reviewed, there may still be some phonetic and typographical errors. These areas are purely typographical due to imperfections of the software programs, and do not reflect any compromise in the patient's medical care. Prognosis poor Plan discussed with: Patient, Other Total Time (mins): 35 JUAN GALARZA MD Mar 06, 2025 08:55
[2025-03-06 09:00] VITALS: BP 151/115; PULSE 66; RESP 18; TEMP 97.7; O2SAT 96
--- NOTE | 2025-03-06 09:16 | DVH ---
EXAMINATION: MRI BRAIN HEAD WO CONTRAST INDICATION: CVA COMPARISON: None TECHNIQUE: Multiplanar, multisequence magnetic resonance imaging of the brain was performed without the use of i ntravenous contrast. FINDINGS: No evidence of acute or remote infarct. No intracranial hemorrhage. No mass effect. There is periventricular/deep white matter T2/FLAIR hyperintensity is nonspecific, but most commonly associated with chronic microvascular disease. The ventricles and sulci are normal in size for age. Clear basal cisterns. Flow voids in the major intracranial vessels are maintained. No abnormality of the orbits. Paranasal sinuses and mastoid air cells are clear. No abnormality of the visualized osseous structures and extracranial soft tissues. IMPRESSION: No acute infarct, intracranial hemorrhage, mass effect, or hydrocephalus.
--- NOTE | 2025-03-06 09:35 | DVHINCON2 ---
Date Seen: Mar 06, 2025 Referring Physician MD Oz Reason for Consultation Hypertensive emergency History of Present Illness This is a pleasant 54-year-old man who presented to the emergency room with a chief complaint of dysarthria. The patient reports he awoke Tuesday morning with dysarthria associated with right-sided facial and right hand numbness. Denies chest pain, palpitations, diaphoresis, shortness of breath, or syncopal events. Upon arrival to the emergency room he was found with a systolic blood pressure up to 230s mmHg. States he stopped his HCTZ and amlodipine therapy approximately a year ago. Somehow he has not follow up with a PCP in recent times. The patient also reports undergoing a stress test approximately 2-3 years ago at [facility] with unknown results as he stopped following up. He underwent a 12 lead electrocardiogram revealing a normal sinus rhythm suggestive of left ventricular hypertrophy. Serial troponin levels are negative. Significant medical history includes hypertension and alcohol depe ndence including two beers daily. Past Medical History Past medical history reviewed. No other significant than mentioned above. Past Surgical History Past surgical history reviewed. No other significant than mentioned above. Family History Family history reviewed. Social History Denies the use of illicit drugs or tobacco use. Admits to alcohol use, two beers daily. Allergies: Coded Allergies: NO KNOWN ALLERGIES (Unverified , 03/04/25) Home Meds Reported Medications Amlodipine Besylate (Amlodipine Besylate) 10 Mg Tab, 2 TAB PO DAILY, #30 TAB 5 Refills 03/04/25 Home Meds Denies any active home medications. Current Medications Current Medications Medications (Trade) Dose Ordered Sig/Klaus Route PRN Reason Start Time Stop Time Status Last Admin Amlodipine Besylate (Norvasc Tablet) 10 mg DAILY PO 03/05/25 10:00 03/05/25 09:34 Aspirin 81 mg DAILY PO 03/05/25 10:00 03/05/25 09:34 Losartan Potassium (Cozaar Tablet) 25 mg DAILY PO 03/06/25 10:00 Clopidogrel Bisulfate (Plavix) 75 mg DAILY PO 03/06/25 10:00 Atorvastatin Calcium (Lipitor) 80 mg HS PO 03/05/25 22:00 03/05/25 22:03 Lorazepam (Ativan Inj) 1 mg ONCE PRN IV MRI 03/05/25 21:30 Review of Systems Constitutional: No symptom reported Ears, Nose, & Throat: No symptom reported Eyes: No symptom reported Neurological: Dysarthria, right facial weakness Pulmonary/Respiratory: No symptom reported Cardiovascular: No symptom reported Gastrointestinal: No symptom reported Genitourinary: No symptom reported Musculoskeletal: No symptom reported Skin: No symptom reported Psychiatric: No symptom reported Endocrine: No symptom reported Hemotologic/Lymphatic: No symptom reported Vital Signs Vital Signs Date Time Temp Pulse Resp B/P (MAP) Pulse Ox O2 Delivery O2 Flow Rate FiO2 03/06/25 05:00 97.7 72 16 158/107 (124) 98 97.7 03/05/25 20:00 Room Air* 0 21 Physical Exam General Appearance: Cooperative. Well developed. Well nourished. In no acute distress Head Exam: Normal inspection Neck Exam: Normal inspection. Non-tender. Normal alignment Pulmonary/Respiratory: Chest non-tender. Clear bilateral breath sounds Cardiovascular/Chest: Regular rate and rhythm. S1, S2. NSR. No murmurs. No JVD. Peripheral Pulses: 2+ Radial (R). 2+ Radial (L). 2+ Pedal (R). 2+ Pedal (L) Abdominal Exam: Normal bowel sounds. Soft. Nontender. No hepatospenomegaly. No masses Ankle Exam: Negative ankle edema Lower extremities: Negative lower extremity edema Neuro/Mental Status: A&O x4. Coherent Thoughts/Psych: Normal thought pattern. Appropriate mood and affect. Good judgement and insight Appearance: In no acute distress Skin Exam: Normal inspection. Normal color. Warm. Dry Labs/Diagnostic Data Labs Test 03/06/25 04:35 03/05/25 04:51 03/04/25 11:43 03/04/25 08:45 Range/Units White Blood Count 10.4 4.4-10.8 10^3/uL Red Blood Count 5.57 4.5-5.90 10^6/uL Hemoglobin 16.9 13.5-17.5 g/dL Hematocrit 48.9 41.0-53.0 % Mean Corpuscular Volume 87.8 80.0-100.0 fL Mean Corpuscular Hemoglobin 30.3 28.0-32.0 pg Mean Corpuscular Hemoglobin Concent 34.5 32.0-36.0 g/dL Red Cell Distribution Width 13.8 11.8-14.3 % Platelet Count 227 140-450 10^3/uL Mean Platelet Volume 9.1 6.9-10.8 fL Neutrophils (%) (Auto) 59.0 37.0-80.0 % Lymphocytes (%) (Auto) 30.7 10.0-50.0 % Monocytes (%) (Auto) 7.3 0.0-12.0 % Eosinophils (%) (Auto) 2.6 0.0-7.0 % Basophils (%) (Auto) 0.4 0.0-2.0 % Neutrophils # (Auto) 6.1 1.6-8.6 10 ^3/uL Lymphocytes # (Auto) 3.2 0.4-5.4 10 ^3/uL Monocytes # (Auto) 0.8 0-1.3 10 ^3/uL Eosinophils # (Auto) 0.3 0-0.8 10 ^3/uL Basophils # (Auto) 0 0-0.2 10 ^3/uL Nucleated Red Blood Cells 0.1 % Sodium Level 140 136-145 mmol/L Potassium Level 4.5 3.5-5.1 mmol/L Chloride Level 107 98-107 mmol/L Carbon Dioxide Level 25 20-31 mmol/L Anion Gap 8 5-15 Blood Urea Nitrogen 8 L 9-23 mg/dL Creatinine 1.20 0.700-1.30 mg/dL Glomerular Filtration Rate Calc 71 >90 mL/min BUN/Creatinine Ratio 6.7 L 10.0-20.0 Serum Glucose 82 74-106 mg/dL Calcium Level 9.5 8.7-10.4 mg/dL Hemoglobin A1c 5.4 <5.7 % A1C Total Bilirubin 0.7 0.2-1.0 mg/dL Aspartate Amino Transferase (AST) 16 13-40 U/L Alanine Aminotransferase (ALT) 14 7-40 U/L Alkaline Phosphatase 77 46-116 U/L Total Protein 7.1 5.7-8.2 g/dL Albumin 4.2 3.2-4.8 g/dL Triglycerides Level 129 < 150 mg/dL Cholesterol Level 183 < 200 mg/dL LDL Cholesterol 139 H < 100 mg/dL HDL Cholesterol 38 L 40-59 mg/dL Troponin I High Sensitivity 9 </=54 ng/L Urine Color Colorless Yellow Urine Clarity Clear Clear Urine pH 5.5 5.0-9.0 Urine Specific [place] 1.004 1.001-1.035 Urine Protein Negative Negative Urine Ketones Negative Negative Urine Blood Negative Negative /uL Urine Nitrite Negative Negative Urine Bilirubin Negative Negative Urine Urobilinogen Normal Negative mg/dL Urine Leukocyte Esterase Negative Negative /uL Urine RBC None seen 0 - 3 /hpf Urine Microscopic WBC < 1 0-3 /HPF Urine Squamous Epithelial Cells Few <5 /hpf Urine Bacteria None seen None Seen /hpf Urine Glucose Normal Normal mg/dL Assessment Hypertensive emergency Dyslipidemia, newly diagnosed Alcohol dependence Suboptimal medical therapy Plan/Recommendation (Dr. Rojo) A transthoracic echocardiogram revealed LVEF 55% with [id number] LVH and mild aortic regurgitation. The patient was offered an inpatient Cardiolite stress test which he prefers to complete as outpatient. In the meantime, continue aggressive blood pressure control for a target SBP <140 mmHg and continue lipid lowering agent as well as risk factor modifications including diet and exercise. Kindly call if in need to re-consult. Thank you for allowing us to participate in this patient's care. This medical document was created using an electronic medical record system with voice recognition software and computerized dictation system. Although this document has been carefully reviewed, there might still be some phonetic and typographical errors. Occasional wrong-word or ``sound-alike substitutions may have occurred due to the inherent limitations of voice recognition software. These areas are purely typographical due to imperfections of the software programs and do not reflect any compromise in the patient's medical care. Please read the chart carefully and recognize, using context, where these substitutions have occurred. Plan discussed with: Patient, Other NYHA Physical activity limitations: NA Date of Service: Mar 06, 2025 Billing Provider: RENETTA MORA Cardiology Common Codes: [id number] INP/OBS CARE (High) RENETTA MORA Mar 06, 2025 09:35
[2025-03-06] MEDS: CLOPIDOGREL BISULFATE 75 MG TAB PO SCH (10:54)
[2025-03-06] MEDS: LOSARTAN POTASSIUM 25 MG TAB PO SCH (10:56)
[2025-03-06] MEDS ORDERED: AMLO1TAB23 PO (11:14)
[2025-03-06] MEDS ORDERED: CLOP75TA28 PO (11:14)
[2025-03-06] MEDS ORDERED: ATOR80TA PO (11:14)
[2025-03-06] MEDS ORDERED: LOSA-534 PO (11:14)
[2025-03-06] MEDS ORDERED: ASPI1TAB19 PO (11:14)
--- NOTE | 2025-03-06 11:18 | DVHDS2 ---
Discharge Summary Date of Admission Mar 04, 2025 at 13:52 Date of Discharge: Mar 06, 2025 Labs/Diagnostic Data: Laboratory Results Test 03/06/25 04:35 03/05/25 04:51 03/04/25 11:43 03/04/25 08:45 White Blood Count 10.4 10^3/uL (4.4-10.8) Red Blood Count 5.57 10^6/uL (4.5-5.90) Hemoglobin 16.9 g/dL (13.5-17.5) Hematocrit 48.9 % (41.0-53.0) Mean Corpuscular Volume 87.8 fL (80.0-100.0) Mean Corpuscular Hemoglobin 30.3 pg (28.0-32.0) Mean Corpuscular Hemoglobin Concent 34.5 g/dL (32.0-36.0) Red Cell Distribution Width 13.8 % (11.8-14.3) Platelet Count 227 10^3/uL (140-450) Mean Platelet Volume 9.1 fL (6.9-10.8) Neutrophils (%) (Auto) 59.0 % (37.0-80.0) Lymphocytes (%) (Auto) 30.7 % (10.0-50.0) Monocytes (%) (Auto) 7.3 % (0.0-12.0) Eosinophils (%) (Auto) 2.6 % (0.0-7.0) Basophils (%) (Auto) 0.4 % (0.0-2.0) Neutrophils # (Auto) 6.1 10 ^3/uL (1.6-8.6) Lymphocytes # (Auto) 3.2 10 ^3/uL (0.4-5.4) Monocytes # (Auto) 0.8 10 ^3/uL (0-1.3) Eosinophils # (Auto) 0.3 10 ^3/uL (0-0.8) Basophils # (Auto) 0 10 ^3/uL (0-0.2) Nucleated Red Blood Cells 0.1 % Sodium Level 140 mmol/L (136-145) Potassium Level 4.5 mmol/L (3.5-5.1) Chloride Level 107 mmol/L (98-107) Carbon Dioxide Level 25 mmol/L (20-31) Anion Gap 8 (5-15) Blood Urea Nitrogen 8 mg/dL (9-23) Creatinine 1.20 mg/dL (0.700-1.30) Glomerular Filtration Rate Calc 71 mL/min (>90) BUN/Creatinine Ratio 6.7 (10.0-20.0) Serum Glucose 82 mg/dL (74-106) Calcium Level 9.5 mg/dL (8.7-10.4) Hemoglobin A1c 5.4 % A1C (<5.7) Total Bilirubin 0.7 mg/dL (0.2-1.0) Aspartate Amino Transferase (AST) 16 U/L (13-40) Alanine Aminotransferase (ALT) 14 U/L (7-40) Alkaline Phosphatase 77 U/L (46-116) Total Protein 7.1 g/dL (5.7-8.2) Albumin 4.2 g/dL (3.2-4.8) Triglycerides Level 129 mg/dL (< 150) Cholesterol Level 183 mg/dL (< 200) LDL Cholesterol 139 mg/dL (< 100) HDL Cholesterol 38 mg/dL (40-59) Troponin I High Sensitivity 9 ng/L (</=54) Urine Color Colorless (Yellow) Urine Clarity Clear (Clear) Urine pH 5.5 (5.0-9.0) Urine Specific [place] 1.004 (1.001-1.035) Urine Protein Negative (Negative) Urine Ketones Negative (Negative) Urine Blood Negative /uL (Negative) Urine Nitrite Negative (Negative) Urine Bilirubin Negative (Negative) Urine Urobilinogen Normal mg/dL (Negative) Urine Leukocyte Esterase Negative /uL (Negative) Urine RBC None seen /hpf (0 - 3) Urine Microscopic WBC < 1 /HPF (0-3) Urine Squamous Epithelial Cells Few /hpf (<5) Urine Bacteria None seen /hpf (None Seen) Urine Glucose Normal mg/dL (Normal) Other Laboratory Tests 03/06/25 04:35 Brief Hx & Hospital Course: 54 M with HTN admitted for TIA. ct negative, came in with facial droop and L weakness now back to baseline. seen by neuro, MRI negative, high ABCD2, will be discharged with DAPT. also was hypertensive, on nicardipine and iv meds now on oral meds. patient reported prior stress test that was abnormal, seen by cardio, but refused inpatient and would get outpatient stress test. stable to tx home x Condition at Discharge: Good Final Diagnosis/Problems List HTN emergency TIA mild AR HLD CAD? abnormal stress test Discharge Disposition: Home Discharge Instruct/Medications Diet: Consistent carbohydrate, Cardiac 2g Na,low cholest Activity: No Restrictions, As Tolerated Follow Up/Referral: [facility] 03/15 PCP Medications: asa plavix 21 days lipitor losartan amlodipine Scheduled Amlodipine Besylate (Amlodipine Besylate), 2 TAB PO DAILY, (Reported) Amlodipine Besylate (Amlodipine Besylate), 10 MG PO DAILY Aspirin (Aspirin), 81 MG PO DAILY Atorvastatin Calcium (Lipitor), 1 TAB PO DAILY Clopidogrel Bisulfate (Plavix), 1 TAB PO DAILY Losartan Potassium (Losartan Potassium), 1 TAB PO DAILY Discharge Statement: "Patient was advised to return to the ER or call 911 if any headaches, dizziness, shortness of breath, chest pain, abdominal pain, bleeding, fevers, or worsening of medical condition. Patient was counseled about treatment plan, medications, possible side effects, patientverbalized understanding. All questions were answered to the best of my ability. This discharge took greater then 30 minutes in planning, reviewing documentation, counseling the patient, and discussing with other team members." ASSESSMENT ASSESSMENT Assessment TIA HTN AR HLD CAD? Date of Service: Mar 06, 2025 Billing Provider: GUNJAN JACOBO MD Common Visit Codes: 40421-CYS/OBS DISCH DAY >30min GUNJAN JACOBO MD Mar 06, 2025 11:18
[2025-03-06 13:00] VITALS: BP 158/23; PULSE 62; RESP 18; TEMP 97.7; O2SAT 99
[2025-03-06] MEDS: LOSARTAN POTASSIUM 25 MG TAB PO ONE (13:58)
[2025-03-07] MEDS ORDERED: LOSARTAN POTASSIUM 25 MG TAB PO SCH (10:00)
== END 2025-03-06 16:15 | disposition home or self-care (01) | DRG 69 ==
LOC: ER 08:29 → OVERFLOW 13:52 → TELE-WESTW 15:15 → WEST WING 03-06 11:15
PROVIDERS: ADMIT Student in an Organized Health Care Education/Training Program; ATTEND Student in an Organized Health Care Education/Training Program
DX: G45.9 Transient cerebral ischemic attack, unspecified (principal); I16.1 Hypertensive emergency; I10 Essential (primary) hypertension; F17.200 Nicotine dependence, unspecified, uncomplicated; F10.20 Alcohol dependence, uncomplicated; I35.1 Nonrheumatic aortic (valve) insufficiency; E78.5 Hyperlipidemia, unspecified; I25.10 Atherosclerotic heart disease of native coronary artery without angina pectoris; Z82.49 Family history of ischemic heart disease and other diseases of the circulatory system; Z82.3 Family history of stroke; Z79.899 Other long term (current) drug therapy; Z79.82 Long term (current) use of aspirin; Z79.02 Long term (current) use of antithrombotics/antiplatelets
CPT/HCPCS: 36415; 70450; 70496; 70498; 70551; 71045; 80048; 80053; 80061; 81001; 83036; 84484; 85025; 93005; 93306; 93886; 96374; 99291; G0378

== ENCOUNTER 2025-03-15 09:58 | Outpatient (CLI) | payer BC ==
[~2025-03-15 09:58] MED LIST: AMLO1TAB23 PO; ASPI1TAB19 PO; ATOR80TA PO; CLOP75TA28 PO; LOSA-534 PO
[2025-03-15 11:05] LABS: Potassium 4.1 mmol/L (3.5-5.1); Sodium 141 mmol/L (136-145)
[2025-03-15 11:06] LABS: Anion Gap 6 (5-15); Calcium 10.1 mg/dL (8.7-10.4); Carbon Dioxide 27 mmol/L (20-31)
[2025-03-15 11:08] LABS: Chloride 108 mmol/L (98-107)
[2025-03-15 11:11] LABS: BUN/Creatinine Ratio 9.8 (10.0-20.0); Blood Urea Nitrogen 11 mg/dL (9-23); Glucose 91 mg/dL (74-106)
== END 2025-03-15 17:00 | disposition home or self-care (01) ==
LOC: LAB 09:58
PROVIDERS: ATTEND Internal Medicine
DX: Z76.0 Encounter for issue of repeat prescription (principal)
CPT/HCPCS: 36415; 80048